=== PATIENT | female | born 1960 | race Caucasian/White ===

== ENCOUNTER 2016-07-15 09:58 | Emergency (ER) | payer OTHER ==
[2016-07-15 10:43] VITALS: BP 123/74
[2016-07-15] MEDS ORDERED: Ibuprofen TAB* 400 MG PO ONE (10:48)
--- NOTE | 2016-07-15 10:56 | UC ---
Respiratory Complaint HPI - HPI Summary HPI Summary: COUGH, CHEST CONGESTION X 7 DAYS + FEVER, CHILLS, NO SOB - History of Current Complaint Chief Complaint: UCRespiratory Stated Complaint: RESPIRATORY COMPLAINT Time Seen by Provider: 07/15/16 10:27 Hx Obtained From: Patient Onset/Duration: Gradual Onset, Lasting Days - 7, Still Present Timing: Constant Severity Initially: Moderate Severity Currently: Moderate Character: Cough: Productive - GREEN Aggravating Factors: Exertion, Deep Breaths Alleviating Factors: Nothing Associated Signs And Symptoms: Positive: Fever, Chills, Pleuritic Chest Pain, Wheezing, URI. Negative: Dyspnea - Allergies/Home Medications Allergies/Adverse Reactions: Allergies Allergy/AdvReac Type Severity Reaction Status Date / Time Penicillins Allergy Severe Anaphylatic Verified 07/15/16 10:30 Shock Montelukast [From Singulair] Allergy Intermediate Rash Verified 07/15/16 10:30 Home Medications: Home Medications Albuterol 2.5MG/3ML (0.083%)* [Ventolin 2.5 MG/3 ML NEB.FARIBA*] 2.5 mg INH Q6H PRN 07/15/16 [History Confirmed 07/15/16] Dicyclomine CAP* [Bentyl CAP*] 20 mg PO BID 07/15/16 [History Confirmed 07/15/16 ] Diltiazem TAB* [Cardizem TAB*] 120 mg PO TID 07/15/16 [History Confirmed ] Dulaglutide (NF) [Trulicity (NF)] 1.5 mg SUBCUT WEEKLY 07/15/16 [History Confirmed 07/15/16] Fluticasone NASAL SPRAY 50MCG* [Flonase NASAL SPRAY 50MCG*] 2 spray BOTH NARES DAILY 07/15/16 [History Confirmed 07/15/16] HYDROcodone/ACETAMIN 5-325 MG* [[place] 5-325 TAB*] 1 tab PO Q4H PRN 07/15/16 [ History Confirmed 07/15/16] Hyoscyamine Sulfate [Hyoscyamine Sulfate Odt] 0.125 mg PO Q4H PRN 07/15/16 [ History Confirmed 07/15/16] Indomethacin CAP* [Indocin CAP*] 50 mg PO TID PRN 07/15/16 [History Confirmed ] Pantoprazole TAB (NF) [Protonix TAB (NF)] 40 mg PO DAILY 07/15/16 [History Confirmed 07/15/16] Rosuvastatin (NF) [Crestor (NF)] 20 mg PO 1700 07/15/16 [History Confirmed 07/15] Sulfamethox/Trimethoprim DS* [Bactrim DS 800/160 TAB*] 1 tab PO MOWEFR 07/15/16 [History Confirmed 07/15/16] guaiFENesin/CODIEN 100MG-10MG* [Robitussin AC 100Mg-10Mg*] 5 - 10 ml PO Q4H PRN 07/15/16 [History Confirmed 07/15/16] PMH/Surg Hx/FS Hx/Imm Hx Endocrine History Of: 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 csection x2, oopherectomy. zack, hysterectomy. bladder lift, colon resection - Family History Known Family History: Negative: Diabetes - Social History Alcohol Use: Occasionally Substance Use Type: None Smoking Status (MU): Never Smoked Tobacco - Immunization History Most Recent Influenza Vaccination: March 2016 Most Recent Pneumonia Vaccination: ~2013 Review of Systems Constitutional: Fever, Chills, Fatigue Skin: Negative Eyes: Negative ENT: Nasal Discharge Respiratory: Cough Cardiovascular: Negative Gastrointestinal: Negative Genitourinary: Negative All Other Systems Reviewed And Are Negative: Yes Physical Exam Triage Information Reviewed: Yes Appearance: Well-Appearing, No Pain Distress, Well-Nourished Vital Signs: Initial Vital Signs Temp 99.1 F 07/15/16 10:27 Pulse 100 07/15/16 10:27 Resp 18 07/15/16 10:27 BP 123/74 07/15/16 10:27 Pulse Ox 95 07/15/16 10:27 Vital Signs Reviewed: Yes Eyes: Positive: Conjunctiva Clear ENT: Positive: Normal ENT inspection, Hearing grossly normal, Pharynx normal Neck exam: Normal Neck: Positive: Supple, Nontender, No Lymphadenopathy Respiratory: Positive: Chest non-tender, Lungs clear, Normal breath sounds Cardiovascular: Positive: RRR, No Murmur, Pulses Normal Skin Exam: Normal UC Diagnostic Evaluation - Laboratory O2 Sat by Pulse Oximetry: 95 Respiratory Course/Dx - Differential Dx/Diagnosis Provider Diagnoses: BRONCHITIS Discharge - Discharge Plan Condition: Stable Disposition: HOME Prescriptions: Azithromycin TAB* [Zithromax TAB (Z-SHEA) 250 mg #6 tabs] 2 tab PO .TODAY, THEN 1 DAILY #1 shea Patient Education Materials: Acute Bronchitis (ED) Referrals: Non Staff,Doctor [Primary Care Provider] - 7 Days
== END 2016-07-15 11:13 | disposition home or self-care (01) ==
LOC: UCCORT 09:58
DX: J40 Bronchitis, not specified as acute or chronic (principal); I10 Essential (primary) hypertension; E11.9 Type 2 diabetes mellitus without complications; Z88.0 Allergy status to penicillin; Z88.8 Allergy status to other drugs, medicaments and biological substances
CPT/HCPCS: 99212; G0463